=== PATIENT | female | born 1980 | race Caucasian/White ===

== ENCOUNTER 2017-01-18 09:48 | Emergency (ER) | payer MEDICAID ==
--- NOTE | ~2017-01-18 | ER ---
PATIENT'S NAME: [facility] AGE: 36 Y [address] ROOM: [place], [place] [address] LOCATION: ED ADMIT DATE: 01/18/2017 ER/Outpatient Report DISCHARGE DATE: 01/18/2017 FAMILY PHYSICIAN: Jaguar Pagan MD ATTENDING PHYSICIAN: Tiffany Danielle Time of Arrival: 0948 hours. Time of Evaluation/Seen: 1012 hours. IDENTIFICATION: A 36-year-old female. CHIEF COMPLAINT: Back pain. HISTORY OF PRESENT ILLNESS: The patient is a 36-year-old female with a chronic history of back pain and has been seen by Dr. Tucker. She apparently was scheduled for surgery, but then there was no approval with her insurance, so they are currently working with insurance and have tentatively reassign the surgery for next Sunday. She had an MRI of her lumbar spine done on December [address] Pagan, showing degenerative changes worse at L5-S1 with a shallow disk protrusion, asymmetric to the left, and mild flattening of the left anterior aspect of the thecal sac. This abuts both S1 nerve root sleeves, slightly worse on the left side. She ran out of her Dittmer last night. She presents today with increasing pain. She states the pain medicine was not helping anyway. No incontinence of urine, but she said she did have an episode where she urinated and it felt like it was just "running out of me," but no incontinence of urine. She has some numbness of just her great toe on the right side just the distal aspect of it. No other numbness or tingling. PAST MEDICAL HISTORY: ALLERGIES: NO KNOWN DRUG ALLERGIES. CURRENT MEDICATIONS: 1. Flexeril 10 mg t.i.d., last dose at midnight. 2. Dittmer 5/325 q.4 hours, but she ran out of that last night. 3. Singulair 10 mg at bedtime. 4. Adderall 20 mg daily. MEDICAL PROBLEMS: 1. Lumbar disk disease. 2. ADHD. PATIENT'S NAME: [facility] AGE: 36 Y [address] ROOM: [place], [place] [address] LOCATION: ED ADMIT DATE: 01/18/2017 ER/Outpatient Report DISCHARGE DATE: 01/18/2017 FAMILY PHYSICIAN: Jaguar Pagan MD ATTENDING PHYSICIAN: Tiffany Danielle 3. Asthma. PAST SURGICAL HISTORY: Prior surgeries: 1. Exploratory laparoscopy. 2. Tubal ligation. 3. Left wrist surgery. SOCIAL HISTORY: The patient lives in [place]. She is unemployed. Tobacco use half pack per day. Alcohol use, denies. Drug use, denies. REVIEW OF SYSTEMS: All systems are reviewed and negative other than what is noted in the HPI. Last menstrual period was 1 week ago. She denies any chance of . She did not try to call Dr. Tucker or Dr. Pagan today. PHYSICAL EXAMINATION: VITAL SIGNS: Weight 88.6 kg, blood pressure 112/75, pulse 110, respiratory rate is 18, temperature 98.5, and sats 99%. GENERAL: Pleasant female, in no acute distress. HEENT: Unremarkable. LUNGS: Clear to auscultation. HEART: Regular rate and rhythm. ABDOMEN: Bowel sounds present. Soft, nondistended. No hepatosplenomegaly. No palpable masses. Nontender. SKIN: [place], warm, and dry. No lesions or rashes noted. NEUROLOGIC: The patient is alert and oriented x4. Cranial nerves 2 through 12 grossly intact. Motor strength 5/5 throughout. Sensation is intact to light touch with the exception of just the distal aspect of her right great toe. Negative straight leg raise bilaterally. EXTREMITIES: No edema. EMERGENCY DEPARTMENT COURSE: We did attempt to call Dr. Tucker, but he is in the operating room and we are unable to reach him. LABORATORY DATA: Hemoglobin 14.4, hematocrit 42.1, platelets 261,000, and white count 6.4. Sedimentation rate 7. UA is unremarkable. Urine-hCG is negative. Chemistry panel is unremarkable. CRP is less than 0.29. IMPRESSION: Acute exacerbation of chronic low back pain. PATIENT'S NAME: [facility] AGE: 36 Y [address] ROOM: [place], [place] [address] LOCATION: [facility] ADMIT DATE: 01/18/2017 ER/Outpatient Report DISCHARGE DATE: 01/18/2017 FAMILY PHYSICIAN: Jaguar Pagan MD ATTENDING PHYSICIAN: Tiffany Danielle PLAN: The patient was given Toradol with no relief. Percocet with mild relief. She will be sent home with Medrol Dosepak, Percocet 5/325, 1 to 2 p.o. q.4-6 hours p.r.n. severe pain, dispensed 10 with 0 refills. Flexeril p.r.n., ice or heat. No heavy lifting, and follow up with Dr. Tucker in 1 to 2 days. Follow up sooner if any problems or concerns. The patient understands and agrees, and all questions have been answered. TIFFANY DANIELLE MD CAR/modl /[id number] d: 01/18/177 t: 01/19/17 1541, OUTPATIENT REPORT
[~2017-01-18 09:48] MED LIST: ADDERALL 20 MG20 MG PO; FLEXERIL10 MG PO; NORCO 5-325 TA1 EACH PO; OXYCODONE HCL10 MG PO; SINGULAIR10 MG PO
[2017-01-18 10:38] LABS: BASOPHIL % 0.5 %; EOSINOPHIL # 0.2 K/uL (0.0-0.5); EOSINOPHIL % 3.1 %; HEMATOCRIT 42.1 % (33.0-46.0); HEMOGLOBIN 14.4 g/dL (11.0-15.0); IMMATURE GRANULOCYTE % 0.2 %; LYMPHOCYTE % 32.1 %; MCH 29.8 pg (27.0-34.0); MCHC 34.2 gm/dL (32.0-36.5); MONOCYTE # 0.3 K/uL (0.0-1.0); MONOCYTE % 5.2 %; MPV 10.2 fl (9.4-12.4); NEUTROPHIL # (ANC) 3.8 K/uL (1.8-7.8); NEUTROPHIL % 58.9 %; NRBC % 0 /100WBC (0-0.00); PLATELET COUNT 261 K/uL (150-450); RBC 4.84 M/uL (3.50-5.50); RDW-CV 12.4 % (11.9-14.6); WBC 6.4 K/uL (4.0-11.0)
[2017-01-18 10:49] LABS: BILIRUBIN URINE NEGATIVE (NEGATIVE); BLOOD URINE 10 /UL (NEGATIVE); COLOR URINE YELLOW (YELLOW); GLUCOSE URINE NEGATIVE (NEGATIVE); KETONE URINE NEGATIVE (NEGATIVE); LEUKOCYTES URINE 25 /UL (NEGATIVE); NITRITE URINE NEGATIVE (NEGATIVE); PROTEIN URINE NEGATIVE (NEGATIVE); TURBIDITY URINE CLEAR (CLEAR); UROBILINOGEN URINE NORMAL (NORMAL)
[2017-01-18 10:54] LABS: ALBUMIN 4.3 gm/dL (3.5-5.0); ALK PHOS 73 IU/L (33-138); ALT 24 IU/L (12-78); ANION GAP 8.7 (10.0-19.0); AST 15 IU/L (10-40); BLOOD UREA NITROGEN 10 mg/dL (6-24); CALCIUM 8.9 mg/dL (8.5-10.5); CHLORIDE 109 mMol/L (96-110); CO2 28 mMol/L (22-32); CREATININE 0.9 mg/dL (0.5-1.1); ESTIMATED GFR (MDRD EQUATION) > 60; POTASSIUM 3.7 mMol/L (3.7-5.1); SODIUM 142 mMol/L (135-145); TOTAL BILIRUBIN 0.5 mg/dL (0.0-1.5); TOTAL PROTEIN 7.9 g/dL (6.0-8.4)
[2017-01-18 11:01] LABS: BACTERIA URINE FEW (NEGATIVE); MUCUS URINE 1+ (NEGATIVE); RBC URINE 0-2 #/HPF (NEGATIVE); WBC URINE 0-2 #/HPF (NEGATIVE)
== END 2017-01-18 12:06 | disposition disaster alternative care site (69) ==
LOC: GMED 09:48
PROVIDERS: Family Medicine
DX: G89.29 Other chronic pain (principal); M54.5 Low back pain
CPT/HCPCS: J1885

== ENCOUNTER 2017-01-25 10:23 | Day surgery (SDC) | payer MEDICAID ==
[~2017-01-25] VITALS: Ht 163.8 cm; Wt 90.7 kg
--- NOTE | ~2017-01-25 | DS ---
PATIENT'S NAME: [facility] AGE: 36 Y [address] ROOM: [place] [address] LOCATION: [facility] [place] ADMIT DATE: 01/25/2017 Discharge Summary DISCHARGE DATE: 01/26/2017 FAMILY PHYSICIAN: Jaguar Pagan MD ATTENDING PHYSICIAN: Katharine Tucker REASON FOR ADMISSION: The patient was a scheduled admission for an elective surgical procedure. HISTORY OF PRESENT ILLNESS: The patient presented with low back pain radiating down the left leg. Imaging studies showed a left L5-S1 disk herniation. TREATMENT RENDERED: The patient was taken to the operating room on the date of admission. She underwent a left L5-S1 microdiskectomy. Surgery was uncomplicated. Her postoperative course was uneventful. Her pain got much better right after surgery. DISCHARGE PLANNING: The patient was discharged home on January 26, 2017. At the time of discharge, her incision was clean, dry, and intact and sterile dressing was applied. She will be followed up in the clinic to see how she is doing. FINAL DIAGNOSIS: Herniated left L5-S1 disk causing left S1 radiculopathy. MD RIYA GODDARDO/deel /[id number] d: 01/31/17 0307 t: 02/01/17 1206, DISCHARGE SUMMARY
--- NOTE | ~2017-01-25 | OR ---
PATIENT'S NAME: [facility] AGE: 36 Y [address] ROOM: [place] [address] [place] [facility] [place]: 01/25/2017 OR/Procedure Report DISCHARGE DATE: 01/26/2017 FAMILY PHYSICIAN: Jaguar Pagan MD ATTENDING PHYSICIAN: Katharine Tucker SURGEON: Katharine Tucker MD NAIL FEEDER: Lydia Lares CST DATE OF PROCEDURE: 01/25/2017 PREOPERATIVE DIAGNOSIS: L5-S1 disk herniation with left S1 radiculopathy. POSTOPERATIVE DIAGNOSIS: L5-S1 disk herniation with left S1 radiculopathy. PROCEDURES PERFORMED: 1. Left L5-S1 hemilaminotomy, medial facetectomy, foraminotomy for decompression of neural elements. 2. Left L5-S1 microdiskectomy. 3. Use of intraoperative microscope. ANESTHESIA: General. ANESTHESIA PROVIDER: Moe Dodd MD HISTORY: This patient is a 36-year-old female who presented with clinical and radiological findings consistent with left S1 radiculopathy. The patient's MRI scan showed shallow disk protrusion, asymmetric, to the left, flattening the left anterior aspect of the dural sac. It also abutted both S1 nerve root sleeves, slightly worse on the left side. This was likely the cause of the patient's problems. Surgery was recommended. The above procedure along with the benefits and risks were discussed with the patient, and with her consent, she was brought to the operating room for surgery. PROCEDURE IN DETAIL: In the operating room, the patient was placed in a supine position. Anesthesia was induced. She was intubated and turned to a prone position on the Rashaad table. The incision was marked out in the midline of her lower back. The whole area was prepped and draped in a sterile fashion. Local anesthesia was infiltrated. A #10 blade was used to open the incision and to deepen it to the fascial layer. Self-retaining retractors were placed. The Bovie was then used to open the fascia and to expose the tips of the spinous processes. The paraspinous muscles were dissected off the spinous processes and laminae PATIENT'S NAME: [facility] AGE: 36 Y [address] ROOM: [place] [address] [place] [facility] [place]: 01/25/2017 OR/Procedure Report DISCHARGE DATE: 01/26/2017 FAMILY PHYSICIAN: Jaguar Pagan MD ATTENDING PHYSICIAN: Katharine Tucker of L5 and S1 on the left side. Appropriate retractors were inserted. Intraoperative x-ray was obtained to confirm that we were at the desired level. Microscope was brought in at this point, and under microscopic vision, the L5-S1 interspace was explored. The adjacent edges of the L5 and S1 laminae were drilled down, and the ligamentum flavum was removed. The dura became visible. The nerve root was also seen. The nerve root retractor was used to hold the nerve root to the midline, and the disk became visible. Under microscopic vision, the disk was incised. It was bulging more significantly than it seemed on the MRI scan, and it was clearly compressing the nerve root. Working very carefully, the disk was removed piecemeal. Decompression continued until the nerve root was seen to be completely free of any compression. A final check was made for any disk fragments that may have migrated away from the disk space, none was found. Irrigation was used to wash out the debris. Hemostasis was achieved. Some ropivacaine was placed in the epidural space. The incision was closed in layers using appropriate suture materials. A sterile dressing was applied. The patient was then rolled back to a supine position. Her anesthesia was reversed. She was extubated and taken back to the recovery room to complete her recovery. I was present at and performed every aspect of this procedure, assisted at some stages by operating room nurses. There were no apparent intraoperative complications. Swabs, needles, and instruments were all accounted for at the end of the case. Estimated blood loss was less than 100 mL, and there was no reason for blood transfusion. I expect the patient to benefit from this procedure. MD RIYA GODDARDO/modl /[id number] d: 01/30/17 1448 t: 02/01/17 1203, OPERATIVE SUMMARY
--- NOTE | 2017-01-26 04:07 | NUR ---
Patient alert and oriented x3, very pleasant and cooperative, at bedside, dressing to back is clean dry and intact, csm with in normal limits, some pain issues when returning from PACU, but has rested well tonight, ambulates well one assist with gaitbelt, large void after surgery
--- NOTE | 2017-01-26 09:23 | NUR ---
900 Introduced self and CM role to patient and significant other at bedside. Denied any needs or concerns about discharge to home. Stated she has her SO and grandma to care for her upon leaving the hospital. Wrote CM name on markerboard and told pt to call if any concerns arise. Plan to discharge to home today or tomorrow 01/27 depending on her pain. CM State Tested Nursing Assistant TH.
--- NOTE | 2017-01-26 14:18 | NUR ---
D: While lying in bed, patient C/O "hazy feeling" feeling in lower legs below knees bilaterally. Calf pumps removed.
[2017-01-26] MEDS ORDERED: NORCO 10-325 T1 EACH PO (16:43)
[2017-01-26] MEDS ORDERED: VALIUM5 MG PO (16:44)
--- NOTE | 2017-01-26 17:59 | NUR ---
D: Patient dismissed to home with family and S.O. assistance. Mepilex dressing dry and intact to back. Taking analgesic prn for pain with relief. Ambulates with one assist. Gait steady. CSM WNL to lower legs. Denies "hazy feeling" to legs at dismissal. Patient voices understanding of dismissal instructions. Dismissed with dismissal instructions, rx and belongings
== END 2017-01-26 17:15 | disposition disaster alternative care site (69) ==
LOC: GSDC 10:23 → G3N 10:23 → GSDC 01-26 17:15
PROC: 0SB20ZZ Excision of Lumbar Vertebral Disc, Open Approach (ICD-10-PCS; principal; 2017-01-25)
PROC: 01NB0ZZ Release Lumbar Nerve, Open Approach (ICD-10-PCS; 2017-01-25)
DX: M51.17 Intervertebral disc disorders with radiculopathy, lumbosacral region (principal); F90.9 Attention-deficit hyperactivity disorder, unspecified type; J45.909 Unspecified asthma, uncomplicated; F41.1 Generalized anxiety disorder; F32.9 Major depressive disorder, single episode, unspecified; F17.200 Nicotine dependence, unspecified, uncomplicated; E66.9 Obesity, unspecified; Z68.30 Body mass index [BMI] 30.0-30.9, adult; Z98.51 Tubal ligation status; Z98.890 Other specified postprocedural states; Z79.899 Other long term (current) drug therapy
CPT/HCPCS: J0690; J1040; J1100; J1885; J2001; J2250; J2270; J2405; J2550; J2795; J3010; J7030; J7120